=== PATIENT | male | born 1970 ===

== ENCOUNTER 2022-11-26 01:26 | Emergency (ER) | payer OTHER, SELFPAY ==
[2022-11-26] VITALS (24 sets, daily range): BP systolic 119–180; BP diastolic 52–104; PULSE 58–81; RESP 10–19; TEMP 36.2; O2SAT 94–99
--- NOTE | ~2022-11-26 | XR_ITS ---
Clinical Indication: Chest pain PA and lateral views of the chest: Comparison: None Findings: The lungs are clear, without evidence of focal consolidation or pleural effusion. Cardiome diastinal silhouette is within normal limits. Bones and soft tissues are unremarkable. Impression: Normal chest. Reviewed, dictated and finalized at location . IGINAL [employer]IAISON OFFICER Impression: Normal chest.
--- NOTE | 2022-11-26 01:31 | ECG_ITS ---
Measurements Intervals [place] Rate: 80 P: 39 SD: 164 QRS: 18 QRSD: 92 T: 15 QT: 347 QTc: 402 Interpretive Statements SINUS RHYTHM BASELINE ARTIFACT- II, III, AVR, AVL, AVF NORMAL ECG NO PREVIOUS ECG AVAILABLE FOR COMPARISON Electronically Signed On 11-26-2022 7:49:08 HOME MANAGER by Quinn Mohamud D.O.
[2022-11-26 01:57] LABS: Basophils Absolute Auto 0.1 K/mm3 (0.0-0.1); Basophils Percent Auto 0.6 % (0.2-1.2); Eosinophils Absolute Auto 0.1 K/mm3 (0-0.3); Hematocrit 41.3 % (42.0-52.0); Hemoglobin 14.3 g/dL (14.0-18.0); Immature Granulocyte Absolute 0.02 K/mm3 (0.00-0.031); Immature Granulocyte Percent A 0.2 % (0-0.5); Lymphocytes Absolute Auto 3.45 K/mm3 (0.9-3.2); Lymphocytes Percent Auto 38.8 % (18.3-44.2); Mean Corpuscular HGB Conc 34.6 g/dl (32-36); Mean Corpuscular Hemoglobin 30.3 pg (26-34); Mean Corpuscular Volume 87.5 fl (80-100); Monocytes Absolute Auto 0.7 K/mm3 (0.1-0.6); Monocytes Percent Auto 7.8 % (2.6-8.5); Neutrophils Absolute Auto 4.6 K/mm3 (1.3-6.7); Neutrophils Percent Auto 51.6 % (45.5-73.1); Platelet Count Result 220 k/mm3 (150-375); Red Blood Count 4.72 M/mm3 (4.6-6.20); Red Cell Distribution Width 12.4 % (11.5-14.5); White Blood Count 8.9 K/mm3 (4.5-10.0)
[2022-11-26 02:11] LABS: INR 1.1
[2022-11-26 02:12] LABS: Partial Thromboplastin Time 38.8 SECONDS (22.3-36.8)
[2022-11-26 02:14] LABS: Alanine Aminotransferase 42 U/L (6-50); Albumin Level 4.7 g/dL (3.5-5.1); Alkaline Phosphatase 61 U/L (38-126); Anion Gap 9 mmol/L (8-16); Aspartate Amino Transferase 37 U/L (17-59); Bilirubin,Total 0.5 mg/dL (0.2-1.3); Blood Urea Nitrogen 16 mg/dL (9-20); Calcium 9.2 mg/dL (8.4-10.2); Carbon Dioxide 23 mmol/L (22-30); Chloride 103 mmol/L (98-107); Estimated CRCL calculation 116 ml/min; Estimated Glomerular Filt Rate > 60; Glucose 103 mg/dL (65-110); Lipase 68 U/L (23-300); Potassium 3.8 mmol/L (3.4-5.0); Sodium 135 mmol/L (137-145)
[2022-11-26 02:26] LABS: Troponin I < 0.012 ng/mL (0.000-0.034)
--- NOTE | 2022-11-26 03:45 | PC.NURSE ---
Pt took 324mg ASA x2 approximately 4 hours [employer].
[2022-11-26 05:50] LABS: Troponin I < 0.012 ng/mL (0.000-0.034)
--- NOTE | 2022-11-26 06:04 | ED.GENADULT ---
HPI - General Adult General Chief complaint: Chest Pain Stated complaint: chest pain Time Seen by Provider: 11/26/22 03:42 History of Present Illness HPI narrative: Patient 52-year-old gentleman who presents emergency department with chief complaint of chest discomfort. Patient states for the last couple weeks has had a little bit of discomfort in his chest reports this evening he had an episode of discomfort. The patient states it was very very mild reports that it is located to just the center portion of the chest reports nonradiating denies shortness of breath. The patient reports he has no prior history of cardiac disease reports no history of hypertension reports no history of high cholesterol no history of early cardiac disease. The patient reports has been doing more exercise since the first of the year and did a lot of upper chest workout Related Data Allergies Allergy/AdvReac Type Severity Reaction Status Date / Time amoxicillin Allergy Unknown Nausea Verified 11/26/22 03:45 Penicillins Allergy Unknown Unknown Verified 11/26/22 03:45 Review of Systems Review of Systems: A 10 system review of systems was completed on the patient and is negative except for what is stated in the HPI. Nursing and ancillary documentation was reviewed. Exam Narrative: GENERAL: Well-appearing, well-nourished, and in no acute distress. HEAD: Normocephalic, atraumatic. EYES: PERRLA and EOMI. ENT: Nares clear, no rhinorrhea or epistaxis. Mucous membranes moist. NECK: Supple. CHEST: Clear to auscultation. No respiratory distress. HEART: Regular rate and rhythm. No murmur heard. Normal peripheral pulses. ABDOMEN: Soft, nontender, nondistended, normal active bowel sounds. EXTREMITIES: Normal range of motion. No edema. SKIN: Warm, dry, no rash. NEURO: No focal deficits. Alert and oriented x3. PSYCH: Normal mood and affect. Course Vital Signs Vital signs: Vital Signs Temperature 36.2 C L 11/26/22 01:41 Pulse Rate 81 11/26/22 01:41 Respiratory Rate 18 11/26/22 01:41 Blood Pressure 180/104 H 11/26/22 01:41 Pulse Oximetry 97 11/26/22 01:41 Oxygen Delivery Room Air 11/26/22 01:41 Temperature 36.2 C L 11/26/22 01:41 Pulse Rate 69 11/26/22 03:46 Respiratory Rate 10 L 11/26/22 03:46 Blood Pressure 133/78 11/26/22 03:45 Pulse Oximetry 98 11/26/22 03:46 Oxygen Delivery Room Air 11/26/22 03:46 Medical Decision Making MDM Narrative Medical decision making narrative: EKG is sinus rhythm rate of [address] elevation or ST depression Chest x-ray showed no focal infiltrate laboratory studies were obtained which showed a troponin of less than 0.02x2 and recordings 3 hours apart. CBC was within normal limits electrolytes showed normal liver enzymes and normal renal function. Vital Signs Vital Signs: Vital Signs Temperature 36.2 C L 11/26/22 01:41 Pulse Rate 81 11/26/22 01:41 Respiratory Rate 18 11/26/22 01:41 Blood Pressure 180/104 H 11/26/22 01:41 Pulse Oximetry 97 11/26/22 01:41 Oxygen Delivery Room Air 11/26/22 01:41 Temperature 36.2 C L 11/26/22 01:41 Pulse Rate 69 11/26/22 03:46 Respiratory Rate 10 L 11/26/22 03:46 Blood Pressure 133/78 11/26/22 03:45 Pulse Oximetry 98 11/26/22 03:46 Oxygen Delivery Room Air 11/26/22 03:46 Lab Data 11/26/22 01:39 11/26/22 01:39 Labs: Lab Results 11/26/22 11/26/22 11/26/22 Range/Units 01:39 01:39 01:39 WBC 8.9 (4.5-10.0) K/mm3 RBC 4.72 (4.6-6.20) M/mm3 Hgb 14.3 (14.0-18.0) g/dL Hct 41.3 L (42.0-52.0) % MCV 87.5 (80-100) fl MCH 30.3 (26-34) pg MCHC 34.6 (32-36) g/dl RDW 12.4 (11.5-14.5) % Plt Count 220 (150-375) k/mm3 MPV 11.0 H (7.4-10.4) fl Immature Gran % (Auto) 0.2 (0-0.5) % Neut % (Auto) 51.6 (45.5-73.1) % Lymph % (Auto) 38.8 (18.3-44.2) % [place] % (Auto) 7.8 (2.6-8.5) % Eos % (Auto) 1.0 (0-4.4) % Bas
== END 2022-11-26 06:26 | disposition home or self-care (01) ==
PROVIDERS: Emergency Provider Emergency Medicine; PCP Family Medicine
DX: R07.89 Other chest pain (principal)
CPT/HCPCS: 36415; 71046; 80053; 83690; 84484; 85025; 85610; 85730; 93005; 99284